=== PATIENT | male | born 1950 | race African-American/Black ===

== ENCOUNTER 2022-02-21 21:25 | Emergency (ER) | payer MEDICARE ==
[~2022-02-21 21:25] MED LIST: ALLOPURINOL100 MG PO; ASA-BUTALB-CAF1 EACH PO; ASPIRIN CHEWABL81 MG PO; BELBUCA75 MCG BU; BENTYL10 MG PO; CEFDINIR300 MG PO; CIPRO500 M1 PO; CLEARLAX17 GM PO; COMPAZINE10 MG PO; COZAAR50 MG PO; DILAUDID4 M1 PO; HYDROCODON-ACE1 EAC4 PO; HYDROMORPHONE HC2 MG PO; KATERZIA1 MG/1 ML PO; LOPRESSOR50 MG PO; MEDROL 4MG DOSEP4 MG PO; NEURONTIN400 MG PO; NORVASC5 MG PO; OXYCODONE-ACET1 EACH PO; PERCOCET 7.5/321 TAB PO; PREGABALIN25 MG PO; PREGABALIN50 MG PO; PREGABALIN75 MG PO; PYRIDIUM200 MG PO; SEROQUEL 25MG T25 MG PO; TOPROL XL 50 MG50 MG PO; ZOFRAN8 MG PO
[2022-02-21 22:30] LABS: BASOPHIL 0.3 % (0-2); EOSINOPHIL 0.1 % (0-7); HCT 29.5 % (42.0-52.0); HGB 9.8 g/dl (13.2-18.0); LYMPHOCYTE 4.3 % (15-48); MCH 39.2 pg (25.0-31.0); MCHC 33.2 g/dL (32.0-36.0); MONOCYTE 14.8 % (0-12); MPV 10.6 fL (6.0-9.5); NEUTROPHIL 80.2 % (41-80); NRBC 0; PLT 238 K/uL (150-400)
[2022-02-21 22:38] LABS: WBC 15.2 K/uL (4.0-10.5)
[2022-02-21 22:44] LABS: INR 1.27 (0.9-1.2); PROTHROMBIN TIME 15.2 SECONDS (11.8-13.4); PTT 32.5 SECONDS (24.4-34.7)
[2022-02-21 23:06] LABS: ALBUMIN 3.3 g/dL (3.4-5.0); BILIRUBIN - TOTAL 0.4 mg/dL (0.2-1.0); BUN/CREAT RATIO (CALC) 9.3 RATIO; CREATININE 8.51 mg/dL (0.67-1.17); GLOBULIN (CALCULATION) 4.9 g/dL; POTASSIUM 5.1 mmol/L (3.5-5.1); TOTAL PROTEIN 8.2 g/dL (6.4-8.2)
[2022-02-21 23:10] LABS: LACTIC ACID 2.5 mmol/L (0.4-1.9)
[2022-02-22 01:08] LABS: CORONAVIRUS 2019 SARS-COV-2 NEGATIVE (NEGATIVE); INFLUENZA A NAA NEGATIVE (NEGATIVE)
== END 2022-02-22 03:10 | disposition other institution (70) ==
LOC: FER 21:25
PROVIDERS: Emergency Medicine; Nurse Practitioner Family
DX: J44.0 Chronic obstructive pulmonary disease with (acute) lower respiratory infection (principal); J18.9 Pneumonia, unspecified organism; J44.1 Chronic obstructive pulmonary disease with (acute) exacerbation; I25.10 Atherosclerotic heart disease of native coronary artery without angina pectoris; I12.0 Hypertensive chronic kidney disease with stage 5 chronic kidney disease or end stage renal disease; N18.6 End stage renal disease; Z99.2 Dependence on renal dialysis; Z95.1 Presence of aortocoronary bypass graft; F17.200 Nicotine dependence, unspecified, uncomplicated; Z20.822 Contact with and (suspected) exposure to COVID-19
CPT/HCPCS: 36415; 36600; 71045; 80053; 82803; 83605; 83880; 84484; 85025; 85610; 85730; 87040; 93005; 94640; 94664; J2543; J2930; J3010; J3475; J7030; J7050; U0002